=== PATIENT | female | born 1995 | race Caucasian/White ===

== ENCOUNTER 2016-12-13 14:19 | Emergency (ER) | payer OTHER ==
[~2016-12-13] VITALS: Ht 144.8 cm; Wt 40.6 kg
[~2016-12-13 14:19] MED LIST: SE-NTAB3 PO
[2016-12-13 14:30] VITALS: BP 110/70; PULSE 64; RESP 18; TEMP 98.8; O2SAT 97
--- NOTE | 2016-12-13 14:30 | PD ---
HPI Chief Complaint: vaginal bleeding Time Seen by Provider: 14:24 Travel History International Travel<30 days: No Contact w/Intl Traveler<30days: No Traveled to known affect area: No History of Present Illness HPI Patient complains of one day vaginal bleeding. The patient was seen and examined in the presence of the nurse. Symptoms severity is mild. No alleviating factors. She has had an ultrasound per her report confirming an intrauterine with heartbeat at around 6 weeks. This is done at a crisis type center. She has not established care. She went to [facility] emergency room and had lab studies but was sent here for an ultrasound. [facility] Past Medical History Diminished Hearing: No ?: : 3 Para: 1 Miscarriage: 1 Dilation and Curettage (D&C): Yes Social History Alcohol Use: No (OCC) Tobacco Use: Yes (4 CIG PER DAY ) Substance Use: No Allergies-Medications (Allergen,Severity, Reaction): Coded Allergies: No Known Allergies (Unverified , 12/13/16) Reported Meds & Prescriptions Reported Meds & Active Scripts Active Reported Se-Asa 19 29-1 mg ( Vit W/ Docusate-Fe Fu) 1 Tab Tab 1 Tab PO DAILY Review of Systems General / Constitutional: No: Fever Eyes: No: Visual changes HENT: No: Headaches Cardiovascular: No: Chest Pain or Discomfort Respiratory: No: Shortness of Breath Gastrointestinal: No: Abdominal Pain Genitourinary: Positive: Vaginal Bleeding, No: Dysuria Musculoskeletal: No: Pain Skin: No Rash Neurologic: No: Weakness Psychiatric: No: Depression Endocrine: No: Polydipsia Hematologic/Lymphatic: No: Easy Bruising Physical Exam Narrative GENERAL: Thin well-developed patient in no apparent distress. SKIN: Focused skin assessment reveals no rash and nodules. Skin is Warm and dry. HEAD: Atraumatic. Normocephalic. EYES: Pupils equal and round. No scleral icterus. No injection or drainage. ENT: No nasal bleeding or discharge. Mucous membranes pink and moist. NECK: Trachea midline. No JVD. CARDIOVASCULAR: Regular rate and rhythm. No murmur appreciated. RESPIRATORY: No accessory muscle use. Clear to auscultation. Breath sounds equal bilaterally. GASTROINTESTINAL: Abdomen soft, non-tender, nondistended. Hepatic and splenic margins not palpable. MUSCULOSKELETAL: No obvious deformities. No clubbing. No cyanosis. No edema. NEUROLOGICAL: Awake and alert. No obvious cranial nerve deficits. Motor grossly within normal limits. Normal speech. PSYCHIATRIC: Anxious mood and affect; insight and judgment normal. Data Data Last Documented VS Vital Signs Date Time Temp Pulse Resp B/P (MAP) Pulse Ox O2 Delivery O2 Flow Rate FiO2 12/13/16 14:30 98.8 64 18 110/70 (83) 97 Orders Orders Us Pelvis (Ques Pr/Ect)W Trans (12/13/16 ) [facility] Medical Decision Making Medical Screen Exam Complete: Yes Emergency Medical Condition: Yes Medical Record Reviewed: Yes Differential Diagnosis Threatened , spontaneous miscarriage, blighted ovum Narrative Course I have reviewed the patient's electronic medical record. Reviewed her workup from earlier today. O+ blood type and normal hemoglobin and beta titer of 6000 I've ordered a transvaginal ultrasound. I reviewed the results with the patient and gave her a copy of the radiology report. Findings are consistent with intrauterine demise. Gestational sac is in the uterus measuring 6 weeks and 4 days but there is no pole or heartbeat seen Recommended [employer] follow-up Diagnosis Primary Impression: Miscarriage Additional Impression: Vaginal bleeding before 22 weeks gestation Additional Instructions: The patient was advised to follow up with their physician and return if they worsen. Med/Other Pt SpecificInfo: Other Disposition: 01 DISCHARGE HOME Condition: Stable Stan Rg MD Dec 13, 2016 14:30
--- NOTE | 2016-12-13 15:54 | RADRPT ---
EXAM DATE/TIME: 12/13/2016 14:56 [facility] COMPARISON: No previous studies available for comparison. INDICATIONS : Bleeding with LAB(S): [id number] MEDICAL HISTORY : . SURGICAL HISTORY : Dilation and curettage. ENCOUNTER: Initial ACUITY: 1 day PAIN SCORE: 7/10 LOCATION: Bilateral pelvis MEASUREMENTS: LEFT OVARY: 3.4 x 2.4 x 1.6 cm UTERUS: 8.4 x 4.5 x 6.0 cm ENDOMETRIAL STRIPE: 19 mm RIGHT OVARY: 3.0 x 1.6 x 2.5 cm FREE FLUID: Yes Posterior cul-de-sac CROWN RUMP LENGTH: 0.65 cm = 6 WKS 4 DAYS FHR: Non-visualized BPM FINDINGS: UTERUS: The myometrium has homogeneous echotexture without mass. Gestational sac is identified measuring 2.3 x 1.8 x 1.9 cm. There is a pole measuring 6.5 mm corresponding to a gestational age of 6 weeks and 4 days. However, I do not see a yolk sac and no heart motions are identified. RIGHT OVARY: Ovary contains no mass or significant cystic lesion. LEFT OVARY: Ovary contains no mass or significant cystic lesion. MISCELLANEOUS: Trace free fluid. CONCLUSION: 1. Sonographic findings characteristic of demise. 2. Trace free fluid. Ovaries are sonographically normal Antony Vuong MD on December 13, 2016 at 15:50 Board Certified Radiologist. This report was verified electronically.
== END 2016-12-13 17:10 | disposition home or self-care (01) ==
LOC: NEPD 14:19
DX: O03.9 Complete or unspecified spontaneous abortion without complication (principal)
CPT/HCPCS: 76700; 76817; 80053; 81001; 84702; 85025; 86900; 86901; 96360; 99281; 99285; J7030

== ENCOUNTER → 2017-08-01 | Outpatient (CLI) | payer OTHER | LOC: HPND 11:20 | PROVIDERS: ATTEND Family Medicine | DX: Z36.3 Encounter for antenatal screening for malformations (principal) | CPT/HCPCS: 76805 ==

== ENCOUNTER → 2017-09-12 | Outpatient (CLI) | payer OTHER | LOC: HPND 11:17 | PROVIDERS: ATTEND Family Medicine | DX: Z36.2 Encounter for other antenatal screening follow-up (principal) | CPT/HCPCS: 76816 ==

== ENCOUNTER → 2017-10-13 | Outpatient (CLI) | payer OTHER | LOC: HPND 08:57 | PROVIDERS: ATTEND Family Medicine | DX: Z36.2 Encounter for other antenatal screening follow-up (principal) | CPT/HCPCS: 76816 ==